=== PATIENT | male | born 1950 ===

== ENCOUNTER 2016-05-01 22:50 | Inpatient (IN) | payer MEDICARE ==
[2016-05-01 22:50] VITALS: BMI 29.5
--- NOTE | 2016-05-01 23:45 | ED PDOC ---
HPI: General Adult Time Seen by Provider: 05/01/16 22:58 Chief Complaint (Nursing): Lower Extremity Problem/Injury Chief Complaint (Provider): forgetful History Per: Patient, Family History/Exam Limitations: no limitations Onset/Duration Of Symptoms: Days (1 week) Current Symptoms Are (Timing): Still Present Additional History Per: Patient, Family Additional Complaint(s): 65 y/o male history of diabetes, CHF, hypertension presents with for increasing forgetfulness x 1 week. Today she saw that he left all house doors open without realizing. She also noted patient with episode of slurred speech earlier today, since resolved. Patient also with frequent falls; states he uses a cane to ambulate and sometimes his foot gets caught up over one another. Denies headache, dizziness, extremity numbness/weakness, nausea/vomiting, chest pain, shortness of breath, palpitations, leg pain. NIHSS Stroke Scale - Date/Time Evaluation Performed Date Performed: 05/01/16 Time Performed: 23:15 When Was NIHSS Performed: Baseline - How Severe is the Stroke Level of Consciousness: 0=Alert LOC to Questions: 0=Both comments correct LOC to commands: 0=Obeys both correctly Best Gaze: 0=Normal Visual: 0=No visual loss Facial: 0=Normal Motor Arm - Left: 0=No drift Motor Arm - Right: 0=No drift Motor Leg - Left: 0=No drift Motor Leg - Right: 0=No drift Limb Ataxia: 0=Absent Sensory: 0=Normal Best Language: 0=No aphasia Dysarthia: 0=Normal articulation Extinction & Inattention (Neglect): 0=Normal, no object Score: 0 Past Medical History Reviewed: Historical Data, Nursing Documentation, Vital Signs Vital Signs: Last Vital Signs Temp 97.8 F 05/02/16 03:31 Pulse 81 05/02/16 03:31 Resp 17 05/02/16 03:31 BP 142/83 05/02/16 03:31 Pulse Ox 98 05/02/16 03:57 - Medical History PMH: Asthma, CHF, COPD, Diabetes, HTN, Hypercholesterolemia, Hypothyroidism, Peripheral Edema, Sleep Apnea Denies: HIV, Chronic Kidney Disease - Family History Family History: States: Unknown Family Hx - Home Medications Home Medications: Ambulatory Orders Medication Instructions Recorded Albuterol Sulfate [Proair Hfa] 2 puff INH DAILY 12/17/15 Aspirin [Ecotrin] 81 mg PO DAILY 12/17/15 Digoxin [Digitek] 125 mcg PO DAILY 12/17/15 Levothyroxine [Synthroid] 88 mcg PO DAILY 12/17/15 Mometasone Furoate [Nasonex] 17 gm MIGUEL PRN PRN 12/17/15 Montelukast Sodium [Singulair] 10 mg PO HS 12/17/15 Multivitamin [One Daily 1 tab PO DAILY 12/17/15 Multivitamin] Zaleplon [Sonata] 5 mg PO HS PRN 12/17/15 Furosemide [Lasix] 40 mg PO DAILY #0 tab 12/21/15 Metoprolol Succinate [Toprol XL] 50 mg PO DAILY #0 tab 12/21/15 Albuterol 0.083% [Albuterol 0.083% 2.5 mg NEB Q4 PRN 05/02/16 Inhal Yenni (2.5 mg/3 ml) UD] Albuterol HFA [Ventolin HFA 90 90 mcg INH Q4 PRN 05/02/16 mcg/actuation (8 g)] Budesonide/Formoterol Fumarate 10.2 gm INH BID 05/02/16 [Symbicort 160-4.5 Mcg Inhaler] Budesonide/Formoterol Fumarate 10.2 gm INH DAILY 05/02/16 [Symbicort 160-4.5 Mcg Inhaler] Enalapril Maleate [Vasotec] 20 mg PO DAILY 05/02/16 Insulin Lispro Mix 75/25 [HumaLOG 12 units SUBCUT PRN PRN 05/02/16 Mix 75/25] Omeprazole [Omeprazole] 40 mg PO HS 05/02/16 Pregabalin [Lyrica] 50 mg PO DAILY 05/02/16 Simvastatin [Simvastatin] 20 mg PO HS 05/02/16 Spironolactone [Aldactone] 25 mg PO DAILY 05/02/16 - Allergies Allergies/Adverse Reactions: Allergies Allergy/AdvReac Type Severity Reaction Status Date / Time shellfish derived Allergy RASH Verified 03/08/16 18:29 shay Allergy RASH Uncoded 03/08/16 18:29 Review of Systems ROS Statement: Except As Marked, All Systems Reviewed And Found Negative Neurological: Positive for: Confusion Physical Exam - Reviewed Nursing Documentation Reviewed: Yes Vital Signs Reviewed: Yes - Physical Exam Appears: Positive for: Well, Non-toxic, No Acute Distress Head Exam: Positive for: ATRAUMATIC, NORMAL INSPECTION, NORMOCEPHALIC Skin: Positive for: Normal Color Eye Exam: Positive for: Normal appearance, EOMI, PERRL ENT: Positive for: Normal ENT Inspection Cardiovascular/Chest: Positive for: Regular Rate, Rhythm Respiratory: Positive for: Normal Breath Sounds Gastrointestinal/Abdominal: Positive for: Normal Exam Extremity: Positive for: Normal ROM, Pedal Edema (1+ b/l). Negative for: Calf Tenderness Neurologic/Psych: Positive for: Alert, Oriented. Negative for: Motor/Sensory Deficits - Laboratory Results Result Diagrams: 05/01/16 23:45 05/01/16 23:45 - ECG ECG: Positive for: Viewed By Me (reviewed by ED attending) ECG Rhythm: Positive for: Sinus Bradycardia (59bpm) O2 Sat by Pulse Oximetry: 98 Pulse Ox Interpretation: Normal - Radiology X-Ray: Viewed By Me X-Ray Interpretation: No Acute Disease - Progress ED Course And Treament: Patient evaluated by ED attending Dr. Tena; will order labs, ekg, chest xray , CT head EXAM: CT Head Without Intravenous Contrast. CLINICAL HISTORY: 65 years old, male; Signs and symptoms; Speech disturbance; Additional info: 1 wk memory loss, slurred speech TECHNIQUE: Axial computed tomography images of the head/brain without intravenous contrast. This CT exam was performed using one or more of the following dose reduction techniques: automated exposure control, adjustment of the mA and/or kV according to patient size, and/or use of iterative reconstruction technique. Coronal and sagittal reformatted images were created and reviewed. EXAM DATE/TIME: 05/01/2016 11:36 PM COMPARISON: There are no prior studies for comparison. FINDINGS: Brain: There is dilatation of sulci gyri and ventricles. There is no midline shift. There is decreased attenuation in periventricular white matter. There is encephalomalacia in the right posterior parietal lobe. There is an age-indeterminate left basal ganglia lacunar infarct. There are no focal masses. There are no focal hemorrhages. Fernández-white differentiation is visualized. Ventricles: See above Bones: Cranial vault is intact. Soft tissues: unremarkable Sinuses: There is no acute sinusitis. Ears and mastoids: Middle ears and mastoids are unremarkable. Orbits: Orbital contents are unremarkable. IMPRESSION: Atrophy and small vessel disease; old right parietal infarct; age indeterminate left basal ganglia lacunar infarct; no bleeding Aspirin PO ordered Case discussed with Dr. Kim, patient's PMD, for admission. Dr. Kim recommending to call Dr. Espinoza, Neurology, regarding consult for subacute infarct. Dr. Espinoza aware, will consult in am. Disposition - Clinical Impression Clinical Impression: CHF (congestive heart failure), Altered mental status, unspecified - Patient ED Disposition Is Patient to be Admitted: Yes - Disposition Disposition Time: 01:52 Condition: FAIR - Pt Status Changed To: Hospital Disposition Of: Observation
[2016-05-02 00:10] LABS: BASO # 0.1 K/uL (0.0-0.2); BASO % 0.8 % (0.0-2.0); EOS # 0.2 K/uL (0.0-0.7); EOS % 2.6 % (0.0-4.0); HEMATOCRIT 40.3 % (35.0-51.0); LYMPH % 10.6 % (20.0-40.0); MEAN CELL VOLUME 71.8 fl (80.0-94.0); MEAN CORPUSCULAR HEMOGLOBIN 22.1 pg (27.0-31.0); MEAN CORPUSCULAR HGB CONC 30.8 g/dL (33.0-37.0); MEAN PLATELET VOLUME 8.3 fl (7.2-11.7); MONO # 0.9 K/uL (0.0-0.8); MONO % 10.1 % (0.0-10.0); NEUT % 75.9 % (50.0-75.0); RED CELL DISTRIBUTION WIDTH 19.3 % (11.5-14.5); WHITE BLOOD COUNT 9.2 K/uL (4.8-10.8)
[2016-05-02 00:23] LABS: ALB/GLOB RATIO 1.1 (1.0-2.1); ALCOHOL SERUM < 10 mg/dl (0-10); ALKALINE PHOSPHATASE 139 U/L (38-126); ALT/SGPT 36 U/L (21-72); AST/SGOT 42 U/L (17-59); BILIRUBIN,TOTAL 1.1 mg/dl (0.2-1.3); BLOOD UREA NITROGEN 26 mg/dl (9-20); CALCIUM 8.6 mg/dL (8.4-10.2); CARBON DIOXIDE 31 mmol/L (22-30); CHLORIDE 96 mmol/L (98-107); GFR AFRICAN-AMERICAN > 60; GLUCOSE,RANDOM 148 mg/dL (75-110); MAGNESIUM 1.7 MG/DL (1.6-2.3); POTASSIUM 4.6 MMOL/L (3.6-5.0); SODIUM 134 mmol/l (132-148); TOTAL PROTEIN 6.8 G/DL (6.3-8.2)
--- NOTE | 2016-05-02 00:56 | CT ---
EXAM: CT Head Without Intravenous Contrast. CLINICAL HISTORY: 65 years old, male; Signs and symptoms; Speech disturbance; Additional info: 1 wk memory loss, slurred speech TECHNIQUE: Axial computed tomography images of the head/brain without intravenous contrast. This CT exam was performed using one or more of the following dose reduction techniques: automated exposure control, adjustment of the mA and/or kV according to patient size, and/or use of iterative reconstruction technique. Coronal and sagittal reformatted images were created and reviewed. EXAM DATE/TIME: 05/01/2016 11:36 PM COMPARISON: There are no prior studies for comparison. FINDINGS: Brain: There is dilatation of sulci gyri and ventricles. There is no midline shift. There is decreased attenuation in periventricular white matter. There is encephalomalacia in the right posterior parietal lobe. There is an age-indeterminate left basal ganglia lacunar infarct. There are no focal masses. There are no focal hemorrhages. Fernández-white differentiation is visualized. Ventricles: See above Bones: Cranial vault is intact. Soft tissues: unremarkable Sinuses: There is no acute sinusitis. Ears and mastoids: Middle ears and mastoids are unremarkable. Orbits: Orbital contents are unremarkable. IMPRESSION: Atrophy and small vessel disease; old right parietal infarct; age indeterminate left basal ganglia lacunar infarct; no bleeding
[2016-05-02] MEDS ORDERED: Albuterol 0.083% Inhal Sol (2.5 mg/3 mL) UD INH PRN (06:43)
--- NOTE | 2016-05-02 07:40 | CARD ---
APPROVED REPORT EKG Measurement Heart [id number] <Conclusion> Sinus bradycardia Possible Left atrial enlargement Left axis deviation Septal infarct, age undetermined Possible Lateral infarct, age undetermined Abnormal ECG
[2016-05-02 08:15] LABS: HEMATOCRIT 39.2 % (35.0-51.0); MEAN CELL VOLUME 71.9 fl (80.0-94.0); MEAN CORPUSCULAR HEMOGLOBIN 21.3 pg (27.0-31.0); MEAN CORPUSCULAR HGB CONC 29.6 g/dL (33.0-37.0); RED CELL DISTRIBUTION WIDTH 19.1 % (11.5-14.5)
[2016-05-02 08:20] LABS: ALKALINE PHOSPHATASE 123 U/L (38-126); ALT/SGPT 36 U/L (21-72); AST/SGOT 34 U/L (17-59); BLOOD UREA NITROGEN 25 mg/dl (9-20); CALCIUM 8.3 mg/dL (8.4-10.2); CARBON DIOXIDE 28 mmol/L (22-30); CHLORIDE 101 mmol/L (98-107); GFR AFRICAN-AMERICAN > 60; GLUCOSE,RANDOM 96 mg/dL (75-110); POTASSIUM 4.3 MMOL/L (3.6-5.0); SODIUM 135 mmol/l (132-148)
[2016-05-02] MEDS ORDERED: Albuterol HFA 90 mcg/actuation (8 g) INH SCH (09:00)
[2016-05-02] MEDS ORDERED: Metoprolol Succinate 50 mg XL Tab PO SCH (09:00)
[2016-05-02] MEDS: Levothyroxine 88 MCG TAB PO SCH (09:54)
[2016-05-02] MEDS: Multivitamin With Minerals Tab PO SCH (09:55)
[2016-05-02] MEDS: Digoxin 125 mcg (0.125 mg) Tab PO SCH (10:05)
--- NOTE | 2016-05-02 11:52 | US ---
PROCEDURE: Carotid vertebral duplex sonography HISTORY: AMS COMPARISON: TECHNIQUE: Grayscale, color Doppler and spectral Doppler assessment of the carotid system bilaterally. This includes common carotid, internal carotid arteries Vertebral artery assessment with respect to direction of flow (antegrade or retrograde) FINDINGS: RIGHT carotid system: Assessment of plaque: Heterogeneous plaque formation. Peak systolic ICA velocity: 54 cm/sec End-diastolic velocity: 19.7 cm/sec ICA/CCA ratio: 0.9 Vertebral artery flow: Antegrade LEFT carotid system: Assessment of plaque: Heterogeneous plaque formation. Peak systolic ICA velocity: 79.2 cm/sec End-diastolic velocity: 15.8 cm/sec ICA/CCA ratio: 1.1 Vertebral artery flow: Antegrade IMPRESSION: Right ICA degree of stenosis: Less than 50% Left ICA degree of stenosis: Less than 50% Reference Internal Carotid Artery (ICA) Peak Systolic Velocity (PSV) for above: 1. Less than 50% stenosis less than 125 cm/s peak systolic velocity 2. 50-69% stenosis 125-230cm/s peak systolic velocity 3. Greater than 70% but less than near occlusion greater than 230 cm/s peak systolic velocity
--- NOTE | 2016-05-02 12:08 | RAD ---
HISTORY: Fatigue. Technique: Single view portable erect @ 00:40. COMPARISON: March 12, 2016. FINDINGS: LUNGS: No active pulmonary disease. PLEURA: No significant pleural effusion identified, no pneumothorax apparent. CARDIOVASCULAR: Cardiomegaly. No evidence of acute, significant cardiovascular disease. Position/ configuration of pacemaker Satisfactory. OSSEOUS STRUCTURES: No significant abnormalities. VISUALIZED UPPER ABDOMEN: Normal. OTHER FINDINGS: None. IMPRESSION: No active disease. No significant interval change compared to the prior examination(s).
[2016-05-02] MEDS ORDERED: Insulin Regular 100 units/ml ONE (12:11)
[2016-05-02] MEDS: Insulin Regular 100 units/ml SC SCH ×3 (12:24→21:13)
--- NOTE | 2016-05-02 13:06 | CON ---
DATE: 05/02/2016 CHIEF COMPLAINT: Forgetfulness and transient questionable slurred speech. HISTORY OF PRESENT ILLNESS: This is a 65-year-old man with history of cardiomyopathy, history of lef t SFA in the lower extremity, status post arthrectomy, peripheral vascular disease, insulin-dependent diabetes mellitus, CHF, legally blind. Apparently, his noticed that he was becoming increasing ly forgetful for the past week and when she saw that he left all the house doors open without realizi ng and that he has been less attentive than usual. She also noticed some transient slurred speech wh ich had resolved while he was in the Emergency Room. He has been having frequent falls. He uses a c ane to ambulate. He does have generalized tingling and numbness in his feet and some pain in his fee t which is subjective to his underlying diabetic peripheral neuropathy and peripheral vascular diseas e. Currently, no pronator drift seen. His [id number] is intact bilaterally. CT head showed no acute intracranial abnormalities, just an old right parietal lobe infarct and an age indeterminate le ft basal ganglia infarct which is lacunar type. Currently, an MRI of the brain is pending. It was n oticed that he has low systolic and diastolic blood pressures when he came of 103/51. PAST MEDICAL HISTORY: History of diabetes type 2, insulin dependent; CHF, hypertension, dyslipidemia , peripheral vascular disease, status post left SFA arthrectomy, legally blind. SOCIAL HISTORY: No illicit drug use, smoking, or ETOH abuse. FAMILY HISTORY: Noncontributory. MEDICATIONS: The patient is on albuterol, aspirin, levothyroxine, Nasonex, Singulair, Lasix, Toprol, Lyrica, Plavix, Symbicort. ALLERGIES: ALLERGIC TO SHELLFISH AND JOHNS, GIVES HIM A RASH. REVIEW OF SYSTEMS: A 14-point review of systems is negative except for the HPI. PHYSICAL EXAMINATION: VITAL SIGNS: Temperature 97.3, pulse rate of 54, blood pressure 103/81, respiratory rate of 17, oxyg en saturation 97% via room air. GENERAL: The patient is sitting up in bed in no acute distress. HEENT: Atraumatic, normocephalic. PERRLA. Extraocular muscles intact. He is legally blind. NECK: Supple, no JVD, no adenopathy noted. LUNGS: Clear to auscultation. No adventitious sounds. HEART: S1, S2, normal rate and rhythm. No murmurs, rubs, or gallops. ABDOMEN: Soft, nontender, nondistended. Bowel sounds are present. EXTREMITIES: No clubbing, no cyanosis. Peripheral pulses 2+ felt bilaterally. NEUROLOGIC: The patient is alert, oriented to person, place and year. Recall after 5 minutes is 0/3 . Poor attention span, slowed thought porosis. Cranial nerves II-XII are intact. MOTOR: Moves all extremities equally. No pronator drift seen. Toes are downgoing bilaterally. SENSORY: Light touch and pinprick is decreased up to the calves bilaterally. Decreased vibration at the toes and knees. DTRs are 2+ throughout, absent at the ankles. COORDINATION: [id number]-[id number] intact. Gait is deferred for now. LABORATORY DATA: Sodium is 135, potassium 4.3, chloride of 101, carbon dioxide 28, BUN of 25, creati nine 1.1, random glucose 96. ASSESSMENT AND PLAN: This is a 65-year-old man with history of congestive heart failure, history of cardiomyopathy, history of peripheral vascular disease, status post left saphenous femoral artery in the left lower extremity, status post atherectomy, history of diabetes type 2 insulin dependent, hist ory of hypertension, dyslipidemia, who has poor walking at baseline and is having frequent falls and increased forgetfulness and transient slurred speech. I was consulted. Likely, his increasingly for getfulness is likely secondary to cognitive impairment given his underlying cardiomyopathy and diabet es as well as his transient slurred speech could be secondary to cerebral hypoperfusion from his unde rlying cardiomyopathy. At this time, recommend: 1. An MRI of the brain just to assess for any acute infarction due to his risk factors. 2. His carotid Doppler has been done and showed less than 50% hemodynamic stenosis, recommend aspiri n, Plavix and statin for stroke prevention. 3. Continue with Lyrica for his underlying neuropathic pain of 50 mg p.o. b.i.d. 4. Keep his blood sugars between 140-180. Diabetic education given. 5. He has diabetic peripheral neuropathy, so would need some outpatient physical therapy for gait im balance. At this time, continue with current present compression. No further neurological workup ne eded at this time. Thank you for this consult. James Espinoza MD cc: [id number] TT: 05/02/2016 13:05:09 Confirmation # [id number] Dictation # [id number] tn
[2016-05-02] MEDS: Pantoprazole 40 mg EC Tab PO SCH (21:09)
[2016-05-02] MEDS: Insulin Lispro Mix 75/25 100 units/ml (HumaLog) 10ml SC SCH (21:14)
--- NOTE | 2016-05-02 22:28 | CP.PCM.HP ---
History of Present Illness - History of Present Illness History of Present Illness: A 65 yr old male with hx of DM, HTN,CHF. AICD , Pvd s\p angioplasty of left leg last month is here c\o feeling unwell.brought by as he is not himself, clumsy,forgetful and weakness also c\o pain in both loer legs , legs swollen,feels SOB on exertion, dizzy, been taking his meds. notes orthopnea. As per patient he was recently in [facility] for feeling dizzy, heart issues. CT head in ER showed old infarcts Present on Admission - Present on Admission Any Indicators Present on Admission: No Review of Systems - Constitutional Constitutional: Fatigue, Malaise, Weight Gain. absent: Fever - EENT Eyes: Other Visual Disturbances Nose/Mouth/Throat: absent: Nasal Congestion, Hoarsness, Sore Throat - Cardiovascular Cardiovascular: Dyspnea on Exertion, Edema, Leg Edema, Palpitations. absent: Chest Pain - Respiratory Respiratory: Cough. absent: Chest Congestion, Excessive Mucous Production, Change in Mucous Color - Gastrointestinal Gastrointestinal: absent: Abdominal Pain, Bloating, Nausea, Vomiting - Genitourinary Genitourinary: absent: Nocturia, Urinary Incontinence - Musculoskeletal Musculoskeletal: Arthralgias, Limited Range of Motion, Myalgias - Integumentary Integumentary: absent: Rash, Skin Ulcer - Neurological Neurological: Disequilibrium, Dizziness, Frequent Falls, Weakness. absent: Focal Weakness, Tremor - Psychiatric Psychiatric: absent: Anxiety, Depression - Endocrine Endocrine: Fatigue. absent: Palpitations - Hematologic/Lymphatic Hematologic: absent: Easy Bleeding Past Patient History - Past Medical History & Family History Past Medical History?: Yes - Past Social History Smoking Status: Never Smoked - CARDIAC Hx Cardiac Disorders: Yes Hx Congestive Heart Failure: Yes Hx Hypertension: Yes Hx Peripheral Edema: Yes Hx Peripheral Vascular Disease: Yes Other/Comment: aicd - PULMONARY Hx Asthma: Yes Hx Chronic Obstructive Pulmonary Disease (COPD): Yes Hx Sleep Apnea: Yes - NEUROLOGICAL Hx Neurological Disorder: Yes - HEENT Hx HEENT Problems: No - RENAL Hx Chronic Kidney Disease: No - ENDOCRINE/METABOLIC Hx Diabetes Mellitus Type 2: Yes Hx Hypothyroidism: Yes - HEMATOLOGICAL/ONCOLOGICAL Hx Human Immunodeficiency Virus (HIV): No - INTEGUMENTARY Hx Dermatological Problems: No - MUSCULOSKELETAL/RHEUMATOLOGICAL Hx Musculoskeletal Disorders: No Hx Falls: Yes Hx Unsteady Gait: Yes - GASTROINTESTINAL Hx Gastrointestinal Disorders: No - GENITOURINARY/GYNECOLOGICAL Hx Genitourinary Disorders: No - PSYCHIATRIC Hx Psychophysiologic Disorder: No Hx Substance Use: No - SURGICAL HISTORY Hx Surgeries: Yes Hx Vascular Surgery: Yes Other/Comment: defibrillator implanted. 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 Hernia repair as an infant - ANESTHESIA Hx Anesthesia: Yes Hx Anesthesia Reactions: No Hx Malignant Hyperthermia: No Meds Home Medications: Home Medication List Medication Instructions Recorded Confirmed Type Atorvastatin [Lipitor] 10 mg PO HS tab 05/04/16 Rx Fluticasone/Salmeterol 250/50 1 puff INH Q12 puff 05/04/16 Rx [Advair Diskus 250/50] Insulin Human Regular [HumuLIN R] 0 units SC ACHS ml 05/04/16 Rx Insulin Lispro Mix 75/25 [HumaLog 12 units SC Q12 vial 05/04/16 Rx MIX 75/25] SITagliptin [Januvia] 50 mg PO DAILY tab 05/04/16 Rx traMADol [Ultram] 50 mg PO Q8 PRN #0 tab 05/04/16 Rx Allergies/Adverse Reactions: Allergies Allergy/AdvReac Type Severity Reaction Status Date / Time shellfish derived Allergy RASH Verified 03/08/16 18:29 shay Allergy RASH Uncoded 03/08/16 18:29 Physical Exam - Constitutional Appears: No Acute Distress - Head Exam Head Exam: NORMAL INSPECTION - Eye Exam Eye Exam: EOMI, Normal appearance - ENT Exam ENT Exam: Mucous Membranes Moist - Respiratory Exam Respiratory Exam: Clear to Auscultation Bilateral, Rales, NORMAL BREATHING PATTERN. absent: Wheezes Additional comments: b\l LL - Cardiovascular Exam Cardiovascular Exam: REGULAR RHYTHM, +S1, +S2, Systolic Murmur Additional comments: AICD on left chest - GI/Abdominal Exam GI & Abdominal Exam: Normal Bowel Sounds, Soft. absent: Tenderness - Extremities Exam Extremities exam: Positive for: pedal edema, pedal pulses present Additional comments: 3 + garza - Neurological Exam Neurological exam: Alert, CN II-XII Intact, Oriented x3 Additional comments: b\l decreased knee\ankle reflex filament test positive in both legs. noted to slow mentation, makes sense - Psychiatric Exam Psychiatric exam: Normal Affect - Skin Skin Exam: Normal Color Results - Vital Signs Recent Vital Signs: Last Vital Signs Temp 98.2 F 05/02/16 19:26 Pulse 67 05/02/16 19:26 Resp 20 05/02/16 19:26 BP 115/65 05/02/16 20:09 Pulse Ox 95 05/02/16 19:26 - Labs Result Diagrams: 05/04/16 05:30 05/04/16 05:30 Labs: Laboratory Results - last 24 hr 05/02/16 05/02/16 05/02/16 07:00 07:55 11:52 WBC 8.0 RBC 5.45 Hgb 11.6 L Hct 39.2 MCV 71.9 L MCH 21.3 L MCHC 29.6 L RDW 19.1 H Plt Count 256 Sodium 135 Potassium 4.3 Chloride 101 Carbon Dioxide 28 Anion Gap 11 BUN 25 H Creatinine 1.1 Est GFR ( Amer) > 60 Est GFR (Non-Af Amer) > 60 POC Glucose (mg/dL) 189 H Random Glucose 96 Lactic Acid Calcium 8.3 L Total Bilirubin 1.0 AST 34 ALT 36 Alkaline Phosphatase 123 Total Protein 6.0 L Albumin 3.0 L Globulin 2.9 Albumin/Globulin Ratio 1.0 05/02/16 05/02/16 11:57 21:08 WBC RBC Hgb Hct MCV MCH MCHC RDW Plt Count Sodium Potassium Chloride Carbon Dioxide Anion Gap BUN Creatinine Est GFR ( Amer) Est GFR (Non-Af Amer) POC Glucose (mg/dL) 172 H Random Glucose Lactic Acid 1.2 Calcium Total Bilirubin AST ALT Alkaline Phosphatase Total Protein Albumin Globulin Albumin/Globulin Ratio - EKG Data EKG Interpreted by: Other - Imaging and Cardiology CT scan - head Status: Report reviewed by me Chest x-ray Status: Report reviewed by me Assessment & Plan (1) Altered mental status, unspecified Status: Acute (2) CHF exacerbation Status: Acute (3) Weakness Status: Acute (4) COPD (chronic obstructive pulmonary disease) Status: Chronic (5) Essential (primary) hypertension Status: Chronic (6) IDDM (insulin dependent diabetes mellitus) Status: Chronic - Assessment and Plan (Free Text) Assessment: 1. AMS-likley due to vascular disease Repeat CT head in 24 hrs neuro consult neurochecks continue ASA 2. CHF exacerebation- systolic iv lasix as his BP running low- to check BP and BP meds as needed 3. continue other meds. 4. RISS accuchecks diet as tolerated after swallow evalv. Decision To Admit - Pt Status Changed To: Hospital Disposition Of: Inpatient - Admit Certification Admit to Inpatient:: After my assessment, the patient will require hospitalization for at least two midnights. This is because of the severity of symptoms shown, intensity of services needed, and/or the medical risk in this patient being treated as an outpatient. - . Bed Request Type: Telemetry Admitting Physician: Inez Kim
[2016-05-03] MEDS: Levothyroxine 88 MCG TAB PO SCH (05:47)
[2016-05-03] MEDS: Insulin Regular 100 units/ml SC SCH ×4 (06:32→21:20)
[2016-05-03 07:26] LABS: CHOLESTEROL 76 mg/dL (0-199)
[2016-05-03] MEDS: Digoxin 125 mcg (0.125 mg) Tab PO SCH (08:46)
[2016-05-03] MEDS: Multivitamin With Minerals Tab PO SCH (08:46)
[2016-05-03] MEDS: Insulin Lispro Mix 75/25 100 units/ml (HumaLog) 10ml SC SCH ×2 (08:53→21:20)
--- NOTE | 2016-05-03 10:08 | CT ---
PROCEDURE: CT HEAD WITHOUT CONTRAST. HISTORY: dizziness COMPARISON: 05/02/2016 TECHNIQUE: Axial computed tomography images were obtained through the head/brain without intravenous contrast. Radiation dose: Total exam DLP = 851.31 mGy-cm. FINDINGS: HEMORRHAGE: No intracranial hemorrhage. BRAIN: Mild diffuse cerebral atrophy. Slightly greater than expected for patient age. Bold right high parietal encephalomalacia change. Possible old infarct. Old left thalamic lacunar infarct. Old bilateral small basal ganglia lacunar infarcts. No evidence of acute infarct. Mild periventricular white matter lucency consistent with chronic microvascular ischemic change. VENTRICLES: Unremarkable. No hydrocephalus. CALVARIUM: Unremarkable. PARANASAL SINUSES: Unremarkable as visualized. No significant inflammatory changes. MASTOID AIR CELLS: Unremarkable as visualized. No inflammatory changes. OTHER FINDINGS: None. IMPRESSION: No intracranial mass, hemorrhage or evidence of acute infarct. Old right parietal encephalomalacia change. Bilateral old basal ganglia lacunar infarct and old left thalamic lacunar infarct. Mild atrophy slightly greater than expected for patient age. Chronic microvascular white matter ischemic change.
[2016-05-03] MEDS: Fluticasone-Salmeterol 250-50mcg Diskus INH SCH ×2 (11:42→21:12)
[2016-05-03] MEDS: Pantoprazole 40 mg EC Tab PO SCH (21:13)
--- NOTE | 2016-05-03 22:54 | CP.PCM.PN ---
Subjective - Date & Time of Evaluation Date of Evaluation: 05/03/16 Time of Evaluation: 14:00 - Subjective Subjective: co pain in both legs wants medication for comfort, still legs swollen,not able to get lasix due to BP. CT pending. able to move all extremities.passed swallow evaluvation. labs noted. Objective - Vital Signs/Intake and Output Vital Signs (last 24 hours): Temp Pulse Resp BP Pulse Ox 98.1 F 55 L 20 114/71 97 05/03/16 20:10 05/03/16 20:10 05/03/16 20:10 05/03/16 20:10 05/03/16 20:10 - Medications Medications: Current Medications Albuterol (Ventolin Hfa 90 Mcg/Actuation (8 G)) 2 puff INH DAILY [facility] Albuterol Sulfate (Albuterol 0.083% Inhal Yenni (2.5 Mg/3 Ml) Ud) 2.5 mg INH RQ6 PRN PRN Reason: Shortness of Breath Aspirin (Ecotrin) 81 mg PO DAILY [facility] Last Admin: 05/03/16 08:46 Dose: 81 mg Atorvastatin Calcium (Lipitor) 10 mg PO HS [facility] Last Admin: 05/03/16 21:12 Dose: 10 mg Digoxin (Lanoxin) 0.125 mg PO DAILY [facility] Last Admin: 05/03/16 08:46 Dose: 0.125 mg Enalapril Maleate (Vasotec) 20 mg PO DAILY [facility] Last Admin: 05/03/16 08:47 Dose: 20 mg Fluticasone Propionate (Flonase) 2 spr MIGUEL DAILY [facility] Last Admin: 05/03/16 11:43 Dose: 2 spr Furosemide (Lasix) 20 mg IVP DAILY [facility] Insulin Human Regular (Humulin R) 0 units SC ACHS [facility] PRN Reason: Protocol Last Admin: 05/03/16 21:20 Dose: Not Given Insulin Lispro Protam/Lispro Human (Humalog Mix 75/25) 12 units SC Q12 [facility] Last Admin: 05/03/16 21:20 Dose: Not Given Levothyroxine Sodium (Synthroid) 88 mcg PO DAILY@0630 [facility] Last Admin: 05/03/16 05:47 Dose: 88 mcg Montelukast Sodium (Singulair) 10 mg PO HS [facility] Last Admin: 05/03/16 21:13 Dose: 10 mg Multivitamins/Minerals (Therapeutic-M Tab) 1 tab PO DAILY [facility] Last Admin: 05/03/16 08:46 Dose: 1 tab Pantoprazole Sodium (Protonix Ec Tab) 40 mg PO HS [facility] Last Admin: 05/03/16 21:13 Dose: 40 mg Pregabalin (Lyrica) 25 mg PO DAILY [facility] Stop: 05/04/16 09:01 Last Admin: 05/03/16 08:52 Dose: 25 mg Fluticasone/Salmeterol (Advair Diskus 250/50) 1 puff INH Q12 [facility] Last Admin: 05/03/16 21:12 Dose: 1 puff Sitagliptin Phosphate (Januvia) 50 mg PO DAILY [facility] Last Admin: 05/03/16 08:45 Dose: 50 mg Spironolactone (Aldactone) 25 mg PO DAILY [facility] Last Admin: 05/03/16 08:46 Dose: 25 mg Tramadol HCl (Ultram) 50 mg PO Q8 PRN PRN Reason: Pain, moderate (4-7) Last Admin: 05/03/16 21:13 Dose: 50 mg - Additional Findings Additional findings: Appears: No Acute Distress - Head Exam Head Exam: NORMAL INSPECTION - Eye Exam Eye Exam: EOMI, Normal appearance - ENT Exam ENT Exam: Mucous Membranes Moist - Respiratory Exam Respiratory Exam: Clear to Auscultation Bilateral, Rales, NORMAL BREATHING PATTERN. absent: Wheezes Additional comments: b\l LL - Cardiovascular Exam Cardiovascular Exam: REGULAR RHYTHM, +S1, +S2, Systolic Murmur Additional comments: AICD on left chest - GI/Abdominal Exam GI & Abdominal Exam: Normal Bowel Sounds, Soft. absent: Tenderness - Extremities Exam Extremities exam: Positive for: pedal edema, pedal pulses present Additional comments: 3 + garza - Neurological Exam Neurological exam: Alert, CN II-XII Intact, Oriented x3 Additional comments: b\l decreased knee\ankle reflex filament test positive in both legs. noted to slow mentation, makes sense - Psychiatric Exam Psychiatric exam: Normal Affect Assessment and Plan (1) CHF exacerbation Status: Acute (2) IDDM (insulin dependent diabetes mellitus) Status: Chronic (3) KARSTEN (obstructive sleep apnea) Status: Chronic (4) Diabetic neuropathy Status: Acute - Assessment and Plan (Free Text) Assessment: 1. continue CPAP 2. lasix as tolearted 3. increase lyrica 50 mg bid and continue ultram 4. labs in am 5. f\u CT head
[2016-05-04] MEDS: Levothyroxine 88 MCG TAB PO SCH (06:15)
[2016-05-04] MEDS: Insulin Regular 100 units/ml SC SCH ×2 (06:35→12:55)
[2016-05-04 07:29] LABS: HEMATOCRIT 37.7 % (35.0-51.0); MEAN CELL VOLUME 71.5 fl (80.0-94.0); MEAN CORPUSCULAR HEMOGLOBIN 21.5 pg (27.0-31.0); WHITE BLOOD COUNT 8.4 K/uL (4.8-10.8)
[2016-05-04 07:30] LABS: BLOOD UREA NITROGEN 18 mg/dl (9-20); CALCIUM 8.7 mg/dL (8.4-10.2); CARBON DIOXIDE 28 mmol/L (22-30); CHLORIDE 96 mmol/L (98-107); GFR AFRICAN-AMERICAN > 60; GLUCOSE,RANDOM 102 mg/dL (75-110); POTASSIUM 4.1 MMOL/L (3.6-5.0); SODIUM 140 mmol/l (132-148)
[2016-05-04 08:06] VITALS: PULSE 69; RESP 18
[2016-05-04] MEDS ORDERED: Albuterol HFA 90 mcg/actuation (8 g) INH SCH (09:00)
[2016-05-04] MEDS: Fluticasone-Salmeterol 250-50mcg Diskus INH SCH (09:04)
[2016-05-04] MEDS: Digoxin 125 mcg (0.125 mg) Tab PO SCH (09:05)
[2016-05-04] MEDS: Multivitamin With Minerals Tab PO SCH (09:06)
[2016-05-04] MEDS: Insulin Lispro Mix 75/25 100 units/ml (HumaLog) 10ml SC SCH (09:07)
[2016-05-04 09:15] VITALS: PULSE 69
[2016-05-04 15:53] VITALS: BP 119/71; TEMP 98.8; O2SAT 99
--- NOTE | 2016-05-08 11:34 | PQF GENQUE ---
Dr. Kim pt was admitted with forgetfulness. After study what is the principal diagnosis for this case? This form is a permanent part of the medical record Clarification of your documentation is requested to better reflect the severity of illness and intensity of treatment of your patient. Indicators present [] Specify: [] [] Specify: [] [] Specify: [] [] Specify: [] Location in the medical record that reflects the above clinical findings: [] Treatment Provided: [] PHYSICIAN'S RESPONSE Based on your medical judgment of the clinical indicators outlined above please clarify the following: [] Practitioner response [] If unable to determine, please check the box, sign and date. Present On Admission (POA) Indicator: [] Present at the time of admission [] Not present at the time of admission [] Clinically Undetermined In responding to this query, please exercise your independent professional judgment. The fact that a question is asked does not imply that any particular answer is desired or expected. Thank you for your clarification on this documentation. If you have any questions please call:[ ] * Thank you, [ ]Ariana Sánchez human resources executive [employer]
--- NOTE | 2016-05-09 22:02 | CP.PCM.DIS ---
Provider - Provider Date of Admission: 05/03/16 01:39 Attending physician: Inez Kim MD Primary care physician: Inez Kim MD Time Spent in preparation of Discharge (in minutes): 30 Diagnosis - Discharge Diagnosis (1) Altered mental status, unspecified Status: Resolved (2) CHF (congestive heart failure) Status: Acute (3) Weakness Status: Resolved (4) Intractable pain Status: Chronic (5) IDDM (insulin dependent diabetes mellitus) Status: Chronic Comment: 1. continue with po lasix. 2. continue all meds. 3.continue pain meds Hospital Course - Lab Results Lab Results: Most Recent Lab Values WBC 8.4 K/uL (4.8-10.8) 05/04/16 05:30 RBC 5.27 Mil/uL (4.40-5.90) 05/04/16 05:30 Hgb 11.3 g/dL (12.0-18.0) L 05/04/16 05:30 Hct 37.7 % (35.0-51.0) 05/04/16 05:30 MCV 71.5 fl (80.0-94.0) L 05/04/16 05:30 MCH 21.5 pg (27.0-31.0) L 05/04/16 05:30 MCHC 30.0 g/dL (33.0-37.0) L 05/04/16 05:30 RDW 19.0 % (11.5-14.5) H 05/04/16 05:30 Plt Count 241 K/uL (130-400) 05/04/16 05:30 MPV 8.3 fl (7.2-11.7) 05/01/16 23:45 Neut % (Auto) 75.9 % (50.0-75.0) H 05/01/16 23:45 Lymph % (Auto) 10.6 % (20.0-40.0) L 05/01/16 23:45 [place] % (Auto) 10.1 % (0.0-10.0) H 05/01/16 23:45 Eos % (Auto) 2.6 % (0.0-4.0) 05/01/16 23:45 Baso % (Auto) 0.8 % (0.0-2.0) 05/01/16 23:45 Neut # 7.0 K/uL (1.8-7.0) 05/01/16 23:45 Lymph # 1.0 K/uL (1.0-4.3) 05/01/16 23:45 [place] # 0.9 K/uL (0.0-0.8) H 05/01/16 23:45 Eos # 0.2 K/uL (0.0-0.7) 05/01/16 23:45 Baso # 0.1 K/uL (0.0-0.2) 05/01/16 23:45 Sodium 140 mmol/l (132-148) 05/04/16 05:30 Potassium 4.1 MMOL/L (3.6-5.0) 05/04/16 05:30 Chloride 96 mmol/L (98-107) L 05/04/16 05:30 Carbon Dioxide 28 mmol/L (22-30) 05/04/16 05:30 Anion Gap 20 (10-20) 05/04/16 05:30 BUN 18 mg/dl (9-20) 05/04/16 05:30 Creatinine 0.9 mg/dL (0.8-1.5) 05/04/16 05:30 Est GFR ( Amer) > 60 05/04/16 05:30 Est GFR (Non-Af Amer) > 60 05/04/16 05:30 POC Glucose (mg/dL) 170 mg/dL (65-110) H 05/04/16 11:15 Random Glucose 102 mg/dL (75-110) 05/04/16 05:30 Lactic Acid 1.2 MMOL/L (0.7-2.1) 05/02/16 11:57 Calcium 8.7 mg/dL (8.4-10.2) 05/04/16 05:30 Phosphorus 3.0 mg/dl (2.5-4.5) 05/01/16 23:45 Magnesium 1.7 MG/DL (1.6-2.3) 05/01/16 23:45 Total Bilirubin 1.0 mg/dl (0.2-1.3) 05/02/16 07:55 AST 34 U/L (17-59) 05/02/16 07:55 ALT 36 U/L (21-72) 05/02/16 07:55 Alkaline Phosphatase 123 U/L (38-126) 05/02/16 07:55 Ammonia < 9 umo/L (16-60) L 05/01/16 23:48 Troponin I < 0.0120 ng/mL (0.00-0.120) 05/01/16 23:45 NT-Pro-B Natriuret Pep 8490 pg/ml (0-900) H 05/01/16 23:45 Total Protein 6.0 G/DL (6.3-8.2) L 05/02/16 07:55 Albumin 3.0 g/dL (3.5-5.0) L 05/02/16 07:55 Globulin 2.9 gm/dL (2.2-3.9) 05/02/16 07:55 Albumin/Globulin Ratio 1.0 (1.0-2.1) 05/02/16 07:55 Triglycerides 114 mg/DL (0-149) 05/03/16 06:00 Cholesterol 76 mg/dL (0-199) 05/03/16 06:00 LDL Cholesterol Direct 49 mg/dL (0-129) 05/03/16 06:00 HDL Cholesterol 15 MG/DL (30-70) L 05/03/16 06:00 TSH 3rd Generation 0.40 mIU/ML (0.46-4.68) L 05/01/16 23:45 Alcohol, Quantitative < 10 mg/dl (0-10) 05/01/16 23:45 - Hospital Course Hospital Course: improved Discharge Exam - Additional Findings Additional findings: Appears: No Acute Distress - Head Exam Head Exam: NORMAL INSPECTION - Eye Exam Eye Exam: EOMI, Normal appearance - ENT Exam ENT Exam: Mucous Membranes Moist - Respiratory Exam Respiratory Exam: Clear to Auscultation Bilateral, Rales, NORMAL BREATHING PATTERN. absent: Wheezes Additional comments: b\l LL - Cardiovascular Exam Cardiovascular Exam: REGULAR RHYTHM, +S1, +S2, Systolic Murmur Additional comments: AICD on left chest - GI/Abdominal Exam GI & Abdominal Exam: Normal Bowel Sounds, Soft. absent: Tenderness - Extremities Exam Extremities exam: Positive for: pedal edema, pedal pulses present Additional comments: 2+ garza - Neurological Exam Neurological exam: Alert, CN II-XII Intact, Oriented x3 Additional comments: b\l decreased knee\ankle reflex filament test positive in both legs. noted to slow mentation, makes sense - Psychiatric Exam Psychiatric exam: Normal Affect Discharge Plan - Follow Up Plan Condition: FAIR Disposition: TRANSF TO SNF Instructions: Heart Failure (DC), Ischemic Stroke (DC), Altered Mental Status ( GEN) Additional Instructions: patient cleared for discharge to [facility] today by Dr.Thota Cherry Kim will f/u patient at Referrals: Inez Kim MD [Primary Care Provider] -
== END 2016-05-04 16:13 | DRG 884 ==
LOC: H.ER 22:50 → H.ERHOLD 05-02 01:46 → H.TEL 05-02 16:36 → OBSVTOIN 05-03 01:39
PROVIDERS: ADMIT Internal Medicine; ATTEND Internal Medicine
DX: F01.50 Vascular dementia, unspecified severity, without behavioral disturbance, psychotic disturbance, mood disturbance, and anxiety (principal); I42.9 Cardiomyopathy, unspecified; E11.51 Type 2 diabetes mellitus with diabetic peripheral angiopathy without gangrene; I11.0 Hypertensive heart disease with heart failure; I50.9 Heart failure, unspecified; E03.9 Hypothyroidism, unspecified; E78.00 Pure hypercholesterolemia, unspecified; E78.5 Hyperlipidemia, unspecified; G47.30 Sleep apnea, unspecified; H54.8 Legal blindness, as defined in USA; J44.9 Chronic obstructive pulmonary disease, unspecified; J45.909 Unspecified asthma, uncomplicated; Z79.4 Long term (current) use of insulin; Z91.013 Allergy to seafood